=== PATIENT | male | born 1980 | race Caucasian/White ===

== ENCOUNTER 2020-08-15 19:32 | Emergency (ER) | payer OTHER ==
[~2020-08-15] VITALS: Ht 180.3 cm; Wt 101.2 kg
[~2020-08-15 19:32] MED LIST: IBUP-1957 PO; OXYC-133 PO
--- NOTE | 2020-08-15 19:36 | NUR ---
pt bibself c/o left back pain that radiates to left leg s/p chasing his dog. pt aaox4 breathing evenly and unlabored. Pt states that he has a "chronic L4 problem that I am waiting for a referral, but chasing my dog made everything worse" pt attached to monitor and pox. pt placed in position of comfort. Pt given blanket and call light within reach.
--- NOTE | 2020-08-15 19:36 | NUR ---
Bre menjivar in [facility] - 08/15/20 at 2057 by VANIA pt bibself c/o left back pain that radiates to left leg s/p chasing his dog
[2020-08-15] MEDS ORDERED: OXYC-128 PO (21:27)
[2020-08-15] MEDS ORDERED: LIDO30AD10 TP (21:27)
[2020-08-15] MEDS ORDERED: IBUPROFEN 600 MG TABLET PO ONE (21:30)
[2020-08-15] MEDS ORDERED: HYDROMORPHONE 1 MG/1 ML DISP.SYRIN IM ONE (21:30)
--- NOTE | 2020-08-15 21:50 | NUR ---
Patient discharged to home in stable condition. Written and verbal after care instructions given. Patient verbalizes understanding of instruction. Pt ambulatory with a steady gait
[2020-08-15 21:59] VITALS: BP 139/98
== END 2020-08-15 21:50 | disposition home or self-care (01) ==
LOC: ER 19:35
DX: M54.42 Lumbago with sciatica, left side (principal); Z88.2 Allergy status to sulfonamides; Z79.899 Other long term (current) drug therapy
CPT/HCPCS: 96372; 99283; J1170

== ENCOUNTER 2021-01-17 15:10 | Emergency (ER) | payer OTHER ==
[~2021-01-17] VITALS: Ht 180.3 cm; Wt 102.1 kg
[~2021-01-17 15:10] MED LIST changes: +LIDO30AD10 TP; +OXYC-128 PO
--- NOTE | 2021-01-17 15:30 | NUR ---
TO ER BED 2,IN A POSITION OF COMFORT,AWAITING MD WILKES
[2021-01-17] MEDS ORDERED: MORPHINE SULFATE INJ 4 MG/ML DISP.SYRIN ONE ×2 (15:58→16:27)
[2021-01-17] MEDS ORDERED: ONDANSETRON 4 MG TAB.RAPDIS ONE (15:58)
[2021-01-17] MEDS ORDERED: MORPHINE SULFATE INJ 2 MG/ML DISP.SYRIN IM ONE ×2 (16:00→16:30)
[2021-01-17] MEDS ORDERED: ONDANSETRON 4 MG TAB.RAPDIS SL ONE (16:00)
[2021-01-17] MEDS ORDERED: OXYC-128 PO (16:41)
[2021-01-17 16:46] VITALS: BP 160/90
--- NOTE | 2021-01-17 16:46 | NUR ---
Patient discharged to home in stable condition. Written and verbal after care instructions given. Patient verbalizes understanding of instruction.
== END 2021-01-17 16:46 | disposition home or self-care (01) ==
LOC: ER 15:12
DX: M54.50 Low back pain, unspecified (principal); G89.29 Other chronic pain; I10 Essential (primary) hypertension; Z88.2 Allergy status to sulfonamides; Z79.899 Other long term (current) drug therapy
CPT/HCPCS: 96372 ×2; 99284; J2270 ×2; Q0162

== ENCOUNTER 2022-05-16 19:52 | Emergency (ER) | payer OTHER ==
[~2022-05-16] VITALS: Ht 180.3 cm; Wt 101.2 kg
--- NOTE | 2022-05-16 21:30 | NUR ---
TO ER BED 2, BIBS FOR C/O SEVERE LOWER BACK PAIN. WITH CHRONIC BACK PAIN, AAOX4, BREATHING EVEN AND NON LABORED, AWAITING MD WILKES
[2022-05-16] MEDS ORDERED: HYDROMORPHONE 1 MG/1 ML DISP.SYRIN IM ONE (22:00)
[2022-05-16] MEDS ORDERED: HYDROMORPHONE 1 MG/1 ML DISP.SYRIN ONE (22:09)
[2022-05-16] MEDS ORDERED: HYDR-3980 PO (23:42)
[2022-05-16] MEDS ORDERED: KETOROLAC TROMETHAMINE INJ 30 MG/ML VIAL ONE (23:52)
[2022-05-16] MEDS ORDERED: HYDROMORPHONE INJ 2 MG/ML DISP.SYRIN ONE (23:52)
[2022-05-17] MEDS ORDERED: KETOROLAC TROMETHAMINE INJ 60 MG/2 ML VIAL IM ONE
[2022-05-17] MEDS ORDERED: HYDROMORPHONE INJ 2 MG/ML DISP.SYRIN IM ONE
--- NOTE | 2022-05-17 00:51 | NUR ---
Patient discharged to home in stable condition. Written and verbal after care instructions given. Patient verbalizes understanding of instruction.
[2022-05-17 00:53] VITALS: BP 139/80
== END 2022-05-17 00:53 | disposition home or self-care (01) ==
LOC: ER 19:57
DX: G89.29 Other chronic pain (principal); M54.42 Lumbago with sciatica, left side; I10 Essential (primary) hypertension; Z87.39 Personal history of other diseases of the musculoskeletal system and connective tissue; Z88.2 Allergy status to sulfonamides; Z79.899 Other long term (current) drug therapy
CPT/HCPCS: 99284; 96372 ×2; J1170 ×2; J1885

== ENCOUNTER 2024-09-12 07:34 | Emergency (ER) | payer MEDICAID, OTHER ==
[~2024-09-12] VITALS: Ht 182.9 cm; Wt 92.5 kg
[~2024-09-12 07:34] MED LIST changes: +HYDR-3980 PO
[2024-09-12] MEDS ORDERED: KETOROLAC TROMETHAMINE INJ 30 MG/ML VIAL ONE (08:05)
[2024-09-12] MEDS ORDERED: CYCLOBENZAPRINE 10 MG TABLET ONE (08:06)
[2024-09-12] MEDS: CYCLOBENZAPRINE 10 MG TABLET PO ONE (08:13)
[2024-09-12] MEDS: KETOROLAC TROMETHAMINE INJ 30 MG/ML VIAL IM ONE (08:20)
[2024-09-12] MEDS ORDERED: oxyCODONE/APAP (5/325 MG) 1 UDTAB TABLET ONE (08:58)
[2024-09-12] MEDS: oxyCODONE/APAP (5/325 MG) 1 UDTAB TABLET PO ONE (09:00)
[2024-09-12] MEDS ORDERED: CYCL5TAB PO (09:26)
[2024-09-12 10:02] VITALS: BP 126/93; TEMP 98.4; O2SAT 96
== END 2024-09-12 10:02 | disposition home or self-care (01) ==
LOC: ER 07:42
DX: M54.50 Low back pain, unspecified (principal); G89.29 Other chronic pain; I10 Essential (primary) hypertension; Z79.1 Long term (current) use of non-steroidal anti-inflammatories (NSAID); Z86.018 Personal history of other benign neoplasm; Z79.899 Other long term (current) drug therapy; Z88.2 Allergy status to sulfonamides; W18.39XA Other fall on same level, initial encounter; Y93.89 Activity, other specified; Y92.89 Other specified places as the place of occurrence of the external cause; Y99.8 Other external cause status
CPT/HCPCS: 99285; 96372; 72100; J1885